=== PATIENT | male | born 1955 | race Caucasian/White ===

== ENCOUNTER 2020-04-11 18:09 | Emergency (ER) | payer OTHER ==
[2020-04-11] MEDS ORDERED: CEFAZOLIN/SWI 1gm 1 GM/10 ML SYR ONE (22:29)
[2020-04-11] MEDS ORDERED: TETANUS & DIPHTHERIA TOX,ADULT 0.5 ML VIAL ONE (23:13)
[2020-04-11] MEDS ORDERED: NA CHLORIDE 0.9% 1,000 ML ONE (23:13)
[2020-04-11] MEDS ORDERED: MORPHINE 4 MG/ML SYR ONE (23:13)
[2020-04-11 23:21] LABS: Hematocrit 44.4 % (39.6-49.0); MPV 8.9 fL (7.6-11.3); RBC Red Blood Cell Count 4.92 M/uL (4.33-5.43)
[2020-04-11 23:24] LABS: Protime INR 0.97
[2020-04-11 23:29] LABS: Potassium 3.9 mmol/L (3.5-5.1)
--- NOTE | 2020-04-11 23:58 | EDPHYS ---
Physician Documentation [facility] Name: Yonatan Galvez Age: 64 yrs Sex: Male : 1955 Arrival Date: 04/11/2020 Time: 18:35 Bed 3 Private MD: ED Physician Davin De Jesus HPI: 04/11 22:11 This 64 yrs old Male presents to ER via Wheelchair with complaints of Wrist cp Injury. 22:11 The patient or guardian reports decreased range of motion, injury, pain. The complaints cp affect the left wrist diffusely. Context: resulted from a fall. 22:11 Onset: The symptoms/episode began/occurred today, at 18:00. cp 22:11 Associated signs and symptoms: Pertinent negatives: cyanosis distally, numbness cp distally. Historical: - Allergies: 18:43 No Known Allergies; ca1 - PMHx: 18:43 Hypertension; ca1 - Immunization history:: Adult Immunizations up to date, Last tetanus immunization: unknown. - Social history:: Smoking status: Patient denies any tobacco usage or history of. ROS: 22:26 Eyes: Negative for injury, pain, redness, and discharge. cp 22:26 Constitutional: Negative for fever. 22:26 Neck: Negative for pain with movement, pain at rest, stiffness. 22:26 Cardiovascular: Negative for chest pain, palpitations. 22:26 Respiratory: Negative for cough, shortness of breath, wheezing. 22:26 Abdomen/GI: Negative for abdominal pain, nausea, vomiting, and diarrhea. 22:26 MS/extremity: Positive for injury or acute deformity, decreased range of motion, pain, swelling, tenderness, of the left wrist. 22:26 Neuro: Negative for altered mental status, headache, loss of consciousness, numbness, syncope, tingling, weakness. 22:26 All other systems are negative. Exam: 22:27 Head/Face: Normocephalic, atraumatic. cp 22:27 Constitutional: The patient appears in no acute distress, alert, awake, non-diaphoretic, non-toxic, well developed, well nourished. 22:27 Eyes: Periorbital structures: appear normal, Conjunctiva: normal, no exudate, no injection, Lids and lashes: appear normal, bilaterally. 22:27 ENT: External ear(s): are unremarkable, Nose: is normal, Mouth: Lips: moist, Oral mucosa: moist, Posterior pharynx: is normal, airway is patent. 22:27 Neck: C-spine: vertebral tenderness, is not appreciated, crepitus, is not appreciated, ROM/movement: is normal, is supple, without pain, no range of motions limitations. 22:27 Chest/axilla: Inspection: normal, Palpation: is normal, no crepitus, no tenderness. 22:27 Cardiovascular: Rate: bradycardic, Rhythm: regular. 22:27 Respiratory: the patient does not display signs of respiratory distress, Respirations: normal, no use of accessory muscles, no retractions, labored breathing, is not present, Breath sounds: are clear throughout, no decreased breath sounds, no stridor, no wheezing. 22:27 Abdomen/GI: Inspection: abdomen appears normal, Palpation: abdomen is soft and non-tender, in all quadrants. 22:27 Musculoskeletal/extremity: Perfusion: the extremity is normally perfused throughout, Severe pain noted. Joints: All joints are normal except the left wrist displays deformity, limited range of motion, pain at rest, painful range of motion, swelling, tenderness. 22:27 Skin: open wound with mild bleeding noted volar surface of left wrist. Vital Signs: 18:40 BP 131 / 76; Pulse 54; Resp 15 S; Temp 97.8(TE); Pulse Ox 99% on R/A; Weight 77.11 kg ca1 (R); Height 5 ft. 11 in. (180.34 cm) (R); 23:30 BP 155 / 89; Pulse 69; Resp 16; Pulse Ox 98% on R/A; rr5 04/12 00:30 BP 151 / 80; Pulse 59; Resp 15; Pulse Ox 100% ; rr5 01:25 BP 149 / 86; Pulse 62; Resp 17; Pulse Ox 99% on R/A; rr5 04/11 18:40 Body Mass Index 23.71 (77.11 kg, 180.34 cm) ca1 Procedures: 01:30 Splinting: Splint applied to left forearm and left wrist using Orthoglass splint, cp sling, sugar tong type. applied by tech. Examined by me, post splint application: neurovascular intact, Patient tolerated well. MDM: 04/11 22:11 Patient medically screened. cp 22:15 Differential diagnosis: dislocation, open fracture, closed fracture. cp 22:23 Physician consultation: Colin Singletary MD was called at 22:20, was contacted at 22:20, regarding consult, patient's condition, after a discussion of the case, a recommendation for transfer for higher level of care is made. 23:58 Data reviewed: vital signs, nurses notes, radiologic studies, I have discussed the cp patient's presentation/case with the attending Emergency Department Physician;. 23:58 Test interpretation: by ED physician or midlevel provider: plain radiologic studies, cp xrays of left wrist show displaced fracture of distal radius. Counseling: I had a detailed discussion with the patient and/or guardian regarding: the historical points, exam findings, and any diagnostic results supporting the discharge/admit diagnosis, radiology results, the need to transfer to another facility, for higher level of care. 04/11 22:18 Order name: CBC w/o diff dm5 04/11 22:18 Order name: Basic Metabolic Panel dm5 04/11 22:20 Order name: PT-INR 04/11 23:29 Order name: Basic Metabolic Panel; Complete Time: 23:38 EDMS 04/11 23:38 Interpretation: Normal except: GLUC 123; GFR 82. cp 04/11 23:30 Order name: Protime (+INR); Complete Time: 23:38 EDMS 04/11 23:33 Order name: CBC without Diff; Complete Time: 23:38 EDMS 04/11 18:44 Order name: Forearm Left XRAY ca1 04/11 18:44 Order name: Wrist Left (3 View) XRAY ca1 04/11 22:20 Order name: IV; Complete Time: 23:23 04/11 23:20 Order name: Sugar Tong Forearm Splint; Complete Time: 23:38 rr5 Administered Medications: 22:30 Drug: Ancef 1 grams Route: IVPB; Site: right hand; rr5 23:30 Follow up: Response: No adverse reaction; IV Status: Completed infusion rr5 23:05 Drug: NS 0.9% 1000 ml Route: IV; Rate: 1 bolus; Site: right hand; rr5 04/12 00:10 Follow up: Response: No adverse reaction; IV Status: Completed infusion; IV Intake: rr5 1000ml 04/11 23:05 Drug: morphine 4 mg {Note: rass 0.} Route: IVP; Site: right hand; rr5 04/12 00:05 Follow up: Response: No adverse reaction; RASS: Alert and Calm (0) rr5 04/11 23:19 Drug: Tetanus-Diphtheria Toxoid Adult 0.5 ml {Graduate [employer] Dean: [employer]. Exp: rr5 11/17/2021. Lot #: [id number]. } Route: IM; Site: right deltoid; 04/12 00:20 Follow up: Response: No adverse reaction rr5 Disposition: 06:44 Co-signature as Attending Physician, Davin De Jesus MD. [facility] Disposition: 04/11/20 23:58 Transfer ordered to [facility]. Diagnosis are Colles' fracture of left radius - open, Other slipping, tripping and stumbling and falls. - Reason for transfer: Higher level of care. - Accepting physician is DR Pollock. - Condition is Stable. - Problem is new. - Symptoms have improved. Signatures: Dispatcher [employer] Estella Chaves RN RN dm5 Richardson Arriaza PA PA cp Roque, Raymond RN MELINDA rr5 Fannie Simpson RN RN ca1 Davin De Jesus MD MD [facility] Corrections: (The following items were deleted from the chart) 04/11 23:58 23:58 04/11/2020 23:58 Transfer ordered to [facility]. Diagnosis is cp Colles' fracture of left radius - open. Reason for transfer: Higher level of care. Accepting physician is DR Pollock. Condition is Stable. Problem is new. Symptoms have improved. cp 04/12 01:27 04/11 23:58 04/11/2020 23:58 Transfer ordered to [facility]. Diagnosis is dm5 Colles' fracture of left radius - open; Other slipping, tripping and stumbling and falls. Reason for transfer: Higher level of care. Accepting physician is DR Pollock. Condition is Stable. Problem is new. Symptoms have improved. cp
--- NOTE | 2020-04-11 23:58 | ER ---
Nurse's Notes [facility] Name: Yonatan Galvez Age: 64 yrs Sex: Male : 1955 Arrival Date: 04/11/2020 Time: 18:35 Bed 3 Private MD: Diagnosis: Colles' fracture of left radius-open;Other slipping, tripping and stumbling and falls Presentation: 04/11 18:40 Chief complaint: Patient states: Slipped and fell, landed on L hand. C/O L wrist pain, ca1 L forearm pain. Coronavirus screen: Proceed with normal triage. Patient denies a cough. Patient denies shortness of breath or difficulty breathing. Patient denies measured and/or subjective temperature greater than 100.4F prior to today's visit. Patient denies travel on a cruise ship or to a country the [facility] currently lists as an affected area. Patient denies contact with known and/or suspected case of COVID-19. Ebola Screen: Patient negative for fever greater than or equal to 101.5 degrees Fahrenheit, and additional compatible Ebola Virus Disease symptoms Patient denies exposure to infectious person. Patient denies travel to an Ebola-affected area in the 21 days before illness onset. No symptoms or risks identified at this time. Initial Sepsis Screen: Does the patient meet any 2 criteria? No. Patient's initial sepsis screen is negative. Does the patient have a suspected source of infection? No. Patient's initial sepsis screen is negative. Risk Assessment: Do you want to hurt yourself or someone else? Patient reports no desire to harm self or others. Onset of symptoms was April 11, 2020. 18:40 Method Of Arrival: Wheelchair ca1 18:40 Acuity: FRANCI 4 ca1 Triage Assessment: 22:20 Injury Description: Deformity sustained to left wrist is open fracture wound. rr5 Historical: - Allergies: 18:43 No Known Allergies; ca1 - PMHx: 18:43 Hypertension; ca1 - Immunization history:: Adult Immunizations up to date, Last tetanus immunization: unknown. - Social history:: Smoking status: Patient denies any tobacco usage or history of. Screenin:20 Abuse screen: Denies threats or abuse. Denies injuries from another. Nutritional rr5 screening: No deficits noted. Tuberculosis screening: No symptoms or risk factors identified. Fall Risk Fall in past 12 months (25 points). IV access (20 points). Total Gutiérrez Fall Scale indicates Low Risk Score (25-44 pts). Fall prevention measures have been instituted. Side Rails Up X 2 Frequent Obs/Assesments occuring As available Patient and Family Educated on Fall Prevention Program and strategies. Assessment: 22:20 General: Appears in no apparent distress. comfortable, Behavior is calm, cooperative, rr5 appropriate for age. Pain: Complains of pain in left wrist Pain radiates to left arm Pain currently is 10 out of 10 on a pain scale. Quality of pain is described as aching, Pain began suddenly, Is intermittent. Neuro: Level of Consciousness is awake, alert, obeys commands, Oriented to person, place, time, situation, Appropriate for age. Cardiovascular: Capillary refill < 3 seconds Patient's skin is warm and dry. Respiratory: Airway is patent Respiratory effort is even, unlabored, Respiratory pattern is regular, symmetrical. 22:20 GI: No signs and/or symptoms were reported involving the gastrointestinal system. : rr5 No signs and/or symptoms were reported regarding the genitourinary system. EENT: No signs and/or symptoms were reported regarding the EENT system. Derm: Skin is intact, is healthy with good turgor, Skin temperature is warm Wound noted left wrist Wound is open wound on left wrist and abrasion on left ankle. Musculoskeletal: Capillary refill < 3 seconds, Bony deformity noted of left wrist Swelling present in left wrist open wound left wrist. 23:30 Reassessment: Patient appears in no apparent distress at this time. Patient is alert, rr5 oriented x 3, equal unlabored respirations, skin warm/dry/pink. wound care done, ring on his ring finger removed and put in his bag. 04/12 00:30 Reassessment: Patient appears in no apparent distress at this time. Patient is alert, rr5 oriented x 3, equal unlabored respirations, skin warm/dry/pink. report given to nely navas. 01:05 Reassessment: Patient appears in no apparent distress at this time. No changes from rr5 previously documented assessment. awaiting for EMS transport. 01:28 Reassessment: Patient appears in no apparent distress at this time. report given to rr5 [place], awake alert vitally stable with IV cannula G20 at right hand intact. with sugar tong splint and arm sling. Vital Signs: 04/11 18:40 BP 131 / 76; Pulse 54; Resp 15 S; Temp 97.8(TE); Pulse Ox 99% on R/A; Weight 77.11 kg ca1 (R); Height 5 ft. 11 in. (180.34 cm) (R); 23:30 BP 155 / 89; Pulse 69; Resp 16; Pulse Ox 98% on R/A; rr5 04/12 00:30 BP 151 / 80; Pulse 59; Resp 15; Pulse Ox 100% ; rr5 01:25 BP 149 / 86; Pulse 62; Resp 17; Pulse Ox 99% on R/A; rr5 04/11 18:40 Body Mass Index 23.71 (77.11 kg, 180.34 cm) ca1 ED Course: 04/11 18:35 Patient arrived in ED. fj1 18:42 Triage completed. ca1 18:43 Arm band placed on right wrist. ca1 22:09 Richardson Arriaza PA is PHCP. cp 22:09 Davin De Jesus MD is Attending Physician. cp 22:19 Yrn Cruz RN is Primary Nurse. rr5 22:20 Patient has correct armband on for positive identification. Bed in low position. Call rr5 light in reach. 22:20 Pulse ox on. NIBP on. rr5 22:40 No provider procedures requiring assistance completed. Inserted saline lock: 20 gauge rr5 in right hand, using aseptic technique. Blood collected. 23:15 Wound care: to open fracture wound located on left wrist was cleaned with Hibiclens, rr5 irrigated with normal saline, dressed with Neosporin, 4X4s, Patient tolerated well. 23:38 Orthoglass splint: Sugar tong splint applied on left arm. Clavicle/Shoulder strap rr5 applied on left clavicle/shoulder. 23:41 Forearm Left XRAY In Process Unspecified. EDMS 23:41 Wrist Left (3 View) XRAY In Process Unspecified. EDMS 04/12 01:25 Patient transferred, IV remains in place. intact, No redness/swelling at site. rr5 Administered Medications: 04/11 22:30 Drug: Ancef 1 grams Route: IVPB; Site: right hand; rr5 23:30 Follow up: Response: No adverse reaction; IV Status: Completed infusion rr5 23:05 Drug: NS 0.9% 1000 ml Route: IV; Rate: 1 bolus; Site: right hand; rr5 04/12 00:10 Follow up: Response: No adverse reaction; IV Status: Completed infusion; IV Intake: rr5 1000ml 04/11 23:05 Drug: morphine 4 mg {Note: rass 0.} Route: IVP; Site: right hand; rr5 04/12 00:05 Follow up: Response: No adverse reaction; RASS: Alert and Calm (0) rr5 04/11 23:19 Drug: Tetanus-Diphtheria Toxoid Adult 0.5 ml {[employer]: [employer]. Exp: rr5 11/17/2021. Lot #: [id number]. } Route: IM; Site: right deltoid; 04/12 00:20 Follow up: Response: No adverse reaction rr5 Intake: 00:10 IV: 1000ml; Total: 1000ml. rr5 Outcome: 04/11 23:58 ER care complete, transfer ordered by MD. michaud 04/12 01:25 Transferred by ground EMS to [facility], Transfer form completed. rr5 Condition: stable Instructed on the need for transfer. 01:27 Patient left the ED. dm5 Signatures: Dispatcher [employer] EDMS Estella Vincent RN RN dm5 Richardson Arriaza PA PA cp Roque, Raymond, RN RN rr5 Fannie Simpson RN RN [facility] Lionel Jordan fj
[2020-04-12 01:46] VITALS: TEMP 97.8
[2020-04-12 01:50] VITALS: BP 149/86; O2SAT 99
--- NOTE | 2020-04-12 08:34 | RAD REPORT ---
EXAM DESCRIPTION: RAD - Wrist Left 3 View - 04/11/2020 10:04 pm CLINICAL HISTORY: PAIN Pain COMPARISON: None FINDINGS: Left forearm and left wrist - multiple projections are submitted Intra-articular distal radius fracture is seen with impaction present. Moderate soft tissue swelling is evident. No dislocation seen. No elbow fracture evident.
--- NOTE | 2020-04-15 09:34 | RAD REPORT ---
EXAM DESCRIPTION: RAD - Forearm Left - 04/11/2020 10:04 pm CLINICAL HISTORY: PAIN COMPARISON: None FINDINGS: Left forearm and left wrist - multiple projections are submitted Intra-articular distal radius fracture is seen with impaction present. Moderate soft tissue swelling is evident. No dislocation seen. No elbow fracture evident.
== END 2020-04-12 01:27 | disposition short-term general hospital (02) ==
LOC: ER 18:09
PROC: 2W3DX1Z Immobilization of Left Lower Arm using Splint (ICD-10-PCS; principal; 2020-04-12)
DX: S52.532B Colles' fracture of left radius, initial encounter for open fracture type I or II (principal); W01.0XXA Fall on same level from slipping, tripping and stumbling without subsequent striking against object, initial encounter; Y93.9 Activity, unspecified; Y92.9 Unspecified place or not applicable; Z23 Encounter for immunization
CPT/HCPCS: 96365; 96361; 80048; 36415; 85610; 85027; 73090; 73110; 90471; 90714; 96375; 99285; 25999; J0690; J7030